=== PATIENT | female | born 1980 | race Two or more races ===

== ENCOUNTER 2016-10-01 20:59 | Emergency (ER) | payer MEDICAID ==
--- NOTE | ~2016-10-01 | ER ---
PATIENT'S NAME: [facility] AGE: 36 Y [address] ROOM: [place] [address] LOCATION: [facility] ADMIT DATE: 10/01/2016 ER/Outpatient Report DISCHARGE DATE: 10/01/2016 FAMILY PHYSICIAN: Nba Velasquez MD ATTENDING PHYSICIAN: Arthur Santiago Time of Arrival: 2108 hours. Time of Exam: 2120 hours. CHIEF COMPLAINT: Right arm burn. HISTORY OF PRESENT ILLNESS: The patient states yesterday she touched oven rack and got a blister to the right forearm area. She says the blister keeps filling up and initially she bumped it and it all drained. She has not had a fever. No pain in her hand or her fingers. ALLERGIES: SHE HAS NO KNOWN ALLERGIES. MEDICATIONS: No current medications. PAST MEDICAL HISTORY: Benign. PAST SURGICAL HISTORY: Hysterectomy and surgery to C6-C7. SOCIAL HISTORY: She does smoke, but denies use of drugs or alcohol. REVIEW OF SYSTEMS: All negative other than those mentioned in the HPI. PHYSICAL EXAMINATION: VITAL SIGNS: She weighed 113.2 kg. Blood pressure 152/84, pulse of 83, respirations 16, temperature of 97.9 tympanic, O2 saturation was 95% on room air. GENERAL: She is awake, alert, and oriented x4. SKIN: [place], warm, and dry. RESPIRATIONS: Even and nonlabored. Lung sounds are clear throughout. HEART: Regular rate and rhythm. The patient has approximately 2 cm area to the right forearm that is a second-degree burn. The patient wanted the PATIENT'S NAME: [facility] AGE: 36 Y [address] ROOM: [place] [address] LOCATION: [facility] ADMIT DATE: 10/01/2016 ER/Outpatient Report DISCHARGE DATE: 10/01/2016 FAMILY PHYSICIAN: Nba Velasquez MD ATTENDING PHYSICIAN: Arthur Santiago blister debrided. I did talk with her about how the blister will provide protection to the burn and that I would prefer that she left it alone and re- wrap it with a dressing to help to keep it protected. She agreed with this. IMPRESSION: Second-degree burn to the right arm. PLAN: Home. We will cover it with a sterile nonadhesive dressing. She is to keep it as clean as possible. Follow up with her primary provider in the next 2 to 3 days, if symptoms persist. She verbalized understanding. MAYA OVALLE APRN FOR DO [facility]LE[facility] HEARN/scott /[id number] d: 10/02/161811 t: 10/05/16 0633, OUTPATIENT REPORT
[~2016-10-01 20:59] MED LIST: IBUPROFEN800 MG PO; VICODIN 5-3001 EACH PO
== END 2016-10-01 22:41 | disposition disaster alternative care site (69) ==
LOC: GACC 20:59
PROC: 2W2CX4Z Dressing of Right Lower Arm using Bandage (ICD-10-PCS; principal; 2016-10-01)
DX: T22.211A Burn of second degree of right forearm, initial encounter (principal); F17.200 Nicotine dependence, unspecified, uncomplicated; Z90.710 Acquired absence of both cervix and uterus; Z98.890 Other specified postprocedural states; X19.XXXA Contact with other heat and hot substances, initial encounter